=== PATIENT | female | born 1965 | race African-American/Black ===

== ENCOUNTER 2018-11-30 12:37 | Outpatient (CLI) | payer OTHER ==
--- NOTE | 2018-11-30 14:40 | PET ---
RADIONUCLIDE PET SCAN WITH CT ATTENUATION CORRECTION: HISTORY: Right breast cancer. Restaging. COMPARISON: Prior CT chest from 04/18/16. FINDINGS: There is physiologic uptake of radiotracer throughout the enteric system and along each urinary tract . Postoperative changes of both breasts are apparent without residual hypermetabolic activity. There is a small, vertically oriented area of uptake associated with the left posterior paraspinal musculat ure of the mid thoracic levels, favored to be muscular rather than a mass. Maximum SUV 3.0. Just above the right hilum of the right upper lung lobe, an oval, homogeneous mass with maximum SUV o f 35.9 measures up to 6.4 cm greatest oblique diameter on the nondiagnostic CT attenuation correction axial images. A central left upper lobe lung mass shows maximum SUV of 9.1 and measures 3.4 cm great est oblique diameter. Right internal jugular [employer] is in place. At the right posterior costophrenic angle, a subpleural 0.6 cm noncalcified lung nodule is present. N o abnormality is apparent on the PET scan, although this size is below the threshold for confident de tection. Degenerative changes of the lumbar spine. IMPRESSION: 1. Bilateral upper lobe lung masses with intense hypermetabolic activity. Metastatic versus lung bret sameer neoplasm. 2. Tiny subpleural lung nodule at the right posterior lung base without confident hypermetabolic act ivity (although its size is below the level for detection). 3. Postoperative changes left breast with no residual activity apparent. POS: [facility]
== END 2018-11-30 12:38 | disposition home or self-care (01) ==
LOC: PET 12:37
PROVIDERS: ATTEND Internal Medicine Hematology & Oncology
DX: C50.919 Malignant neoplasm of unspecified site of unspecified female breast (principal); R91.8 Other nonspecific abnormal finding of lung field; Z98.890 Other specified postprocedural states
CPT/HCPCS: 78815; A9552